=== PATIENT | female | born 1945 | race Caucasian/White ===

== ENCOUNTER 2019-08-09 13:47 | Outpatient (CLI) | payer MEDICARE, SELFPAY ==
--- NOTE | ~2019-08-09 | MM_ITS ---
EXAMINATION: MM screening [facility] BI w brayan HISTORY: Screening mammogram TECHNIQUE: Craniocaudal and mediolateral oblique 3-D tomosynthesis images were obtained and synthetic 2-D images were generated. CAD analysis was submitted and interpreted. COMPARISON: 08/21/2018, 05/24/2018, 04/10/2017 bilateral digital screening mammogram examinations BREAST PARENCHYMAL COMPOSITION: There are scattered areas of fibroglandular density. FINDINGS: Bilateral benign calcifications. There is no evidence of suspicious mass, calcification, or architectural distortion to suggest malignancy in either breast. There has been no suspicious interv al change. IMPRESSION: 1. No mammographic evidence of malignancy. 2. Recommend routine screening mammography in one year. BI-RADS Category 2: Benign finding(s). Reviewed, dictated and finalized at location A. 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
== END 2019-08-09 13:48 | disposition home or self-care (01) ==
LOC: CHSIMG 13:50
PROVIDERS: PCP Nurse Practitioner; Visit Provider Nurse Practitioner
DX: Z12.31 Encounter for screening mammogram for malignant neoplasm of breast (principal)
CPT/HCPCS: 77063; 77067

== ENCOUNTER 2019-11-21 10:02 | Outpatient (CLI) | payer MEDICARE, SELFPAY ==
[2019-11-21 10:54] LABS: Cholesterol 174 mg/dL (0-200); HDL Direct 49 mg/dL (40-60); LDL Cholesterol Calculated 107 mg/dL (<130); Triglycerides 92 mg/dL (0-150)
== END 2019-11-21 10:03 | disposition home or self-care (01) ==
LOC: CHSLAB 10:03
PROVIDERS: PCP Nurse Practitioner; Visit Provider Nurse Practitioner
DX: E78.5 Hyperlipidemia, unspecified (principal)
CPT/HCPCS: 36415; 80061

== ENCOUNTER 2020-02-21 08:46 | Outpatient (CLI) | payer MEDICARE, SELFPAY ==
[2020-02-21 09:07] LABS: Basophils Absolute Auto 0.03 K/mm3 (0.00-0.10); Basophils Percent Auto 0.5 % (0.0-1.0); Eosinophils Absolute Auto 0.26 K/mm3 (0.02-0.50); Eosinophils Percent Auto 4.5 % (1.0-6.0); Hemoglobin 10.2 g/dL (11.7-13.8); Immature Granulocyte Absolute 0.02 K/mm3 (0.00-0.00); Immature Granulocyte Percent A 0.3 % (0.0-0.0); Lymphocytes Absolute Auto 1.78 K/mm3 (1.10-4.50); Lymphocytes Percent Auto 30.7 % (18.0-42.0); Mean Corpuscular HGB Conc 30.9 g/dL (32.0-36.0); Mean Corpuscular Hemoglobin 31.9 pg (27.0-31.0); Mean Corpuscular Volume 103.1 fL (78.0-102.0); Mean Platelet Volume 9.8 fl (9.2-11.8); Monocytes Absolute Auto 0.48 K/mm3 (0.10-0.90); Monocytes Percent Auto 8.3 % (2.0-11.0); Neutrophils Absolute Auto 3.2 K/mm3 (1.7-7.2); Neutrophils Percent Auto 55.7 % (50.0-70.0); Platelet Count Result 182 K/mm3 (150-420); Red Cell Distribution Width 14.2 % (11.6-14.4); White Blood Count 5.8 K/mm3 (4.8-10.8)
[2020-02-21 10:03] LABS: Alanine Aminotransferase 22 U/L (14-59); Albumin Level 4.5 g/dL (3.4-5.0); Alkaline Phosphatase 73 U/L (46-116); Anion Gap 8 mmol/L (8-16); Aspartate Amino Transferase 19 U/L (15-37); Bilirubin,Total 0.8 mg/dL (0.00-1.00); Blood Urea Nitrogen 22 mg/dL (7-18); Calcium 8.6 mg/dL (8.5-10.1); Carbon Dioxide 28 mmol/L (21-32); Chloride 102 mmol/L (98-108); Estimated Glomerular Filt Rate > 60; Glucose 193 mg/dL (70-99); Osmolality Calculated 294 mOsm/kg (285-295); Potassium 4.2 mmol/L (3.5-5.1); Sodium 138 mmol/L (136-145); Total Protein 6.9 g/dL (6.4-8.2)
== END 2020-02-21 08:47 | disposition home or self-care (01) ==
LOC: CHSLAB 08:50
PROVIDERS: PCP Nurse Practitioner
DX: L12.0 Bullous pemphigoid (principal); Z79.899 Other long term (current) drug therapy
CPT/HCPCS: 36415; 80053; 85025

== ENCOUNTER 2020-05-11 08:17 | Outpatient (CLI) | payer MEDICARE, SELFPAY ==
[2020-05-11 08:33] LABS: Basophils Absolute Auto 0.04 K/mm3 (0.00-0.10); Eosinophils Percent Auto 4.9 % (1.0-6.0); Hematocrit 30.6 % (35.0-42.0); Hemoglobin 9.5 g/dL (11.7-13.8); Immature Granulocyte Absolute 0.02 K/mm3 (0.00-0.00); Immature Granulocyte Percent A 0.5 % (0.0-0.0); Lymphocytes Absolute Auto 1.35 K/mm3 (1.10-4.50); Lymphocytes Percent Auto 32.8 % (18.0-42.0); Mean Corpuscular Hemoglobin 31.6 pg (27.0-31.0); Mean Corpuscular Volume 101.7 fL (78.0-102.0); Mean Platelet Volume 9.1 fl (9.2-11.8); Monocytes Absolute Auto 0.34 K/mm3 (0.10-0.90); Monocytes Percent Auto 8.3 % (2.0-11.0); Neutrophils Absolute Auto 2.2 K/mm3 (1.7-7.2); Neutrophils Percent Auto 52.5 % (50.0-70.0); Platelet Count Result 172 K/mm3 (150-420); Red Blood Count 3.01 M/mm3 (4.20-5.40); White Blood Count 4.1 K/mm3 (4.8-10.8)
[2020-05-11 09:09] LABS: Alanine Aminotransferase 20 U/L (14-59); Albumin Level 4.4 g/dL (3.4-5.0); Alkaline Phosphatase 70 U/L (46-116); Anion Gap 10 mmol/L (8-16); Aspartate Amino Transferase 17 U/L (15-37); Bilirubin,Total 1.1 mg/dL (0.00-1.00); Blood Urea Nitrogen 17 mg/dL (7-18); Calcium 8.9 mg/dL (8.5-10.1); Carbon Dioxide 27 mmol/L (21-32); Chloride 103 mmol/L (98-108); Cholesterol 158 mg/dL (0-200); Estimated Glomerular Filt Rate > 60; Glucose 172 mg/dL (70-99); HDL Direct 52 mg/dL (40-60); LDL Cholesterol Calculated 88 mg/dL (<130); Osmolality Calculated 295 mOsm/kg (285-295); Potassium 4.3 mmol/L (3.5-5.1); Sodium 140 mmol/L (136-145); Total Protein 6.9 g/dL (6.4-8.2); Triglycerides 90 mg/dL (0-150)
== END 2020-05-11 08:18 | disposition home or self-care (01) ==
LOC: CHSLAB 08:20
PROVIDERS: PCP Nurse Practitioner; Visit Provider Nurse Practitioner
DX: D64.9 Anemia, unspecified (principal); E78.5 Hyperlipidemia, unspecified; I10 Essential (primary) hypertension; M13.0 Polyarthritis, unspecified; Z13.31 Encounter for screening for depression
CPT/HCPCS: 36415; 80053; 80061; 85025

== ENCOUNTER 2020-08-10 12:28 | Outpatient (CLI) | payer MEDICARE, SELFPAY ==
[2020-08-10 12:45] LABS: Basophils Absolute Auto 0.02 K/mm3 (0.00-0.10); Basophils Percent Auto 0.3 % (0.0-1.0); Eosinophils Absolute Auto 0.18 K/mm3 (0.02-0.50); Eosinophils Percent Auto 2.7 % (1.0-6.0); Hematocrit 29.5 % (35.0-42.0); Hemoglobin 9.2 g/dL (11.7-13.8); Immature Granulocyte Absolute 0.02 K/mm3 (0.00-0.00); Immature Granulocyte Percent A 0.3 % (0.0-0.0); Lymphocytes Absolute Auto 1.33 K/mm3 (1.10-4.50); Lymphocytes Percent Auto 19.7 % (18.0-42.0); Mean Corpuscular HGB Conc 31.2 g/dL (32.0-36.0); Mean Corpuscular Hemoglobin 31.9 pg (27.0-31.0); Mean Corpuscular Volume 102.4 fL (78.0-102.0); Mean Platelet Volume 9.5 fl (9.2-11.8); Monocytes Absolute Auto 0.38 K/mm3 (0.10-0.90); Monocytes Percent Auto 5.6 % (2.0-11.0); Neutrophils Absolute Auto 4.8 K/mm3 (1.7-7.2); Neutrophils Percent Auto 71.4 % (50.0-70.0); Platelet Count Result 162 K/mm3 (150-420); Red Blood Count 2.88 M/mm3 (4.20-5.40); Red Cell Distribution Width 13.8 % (11.6-14.4); White Blood Count 6.8 K/mm3 (4.8-10.8)
[2020-08-10 13:32] LABS: Alanine Aminotransferase 30 U/L (14-59); Albumin Level 4.1 g/dL (3.4-5.0); Alkaline Phosphatase 71 U/L (46-116); Anion Gap 9 mmol/L (8-16); Aspartate Amino Transferase 30 U/L (15-37); Bilirubin,Total 1.4 mg/dL (0.00-1.00); Blood Urea Nitrogen 15 mg/dL (7-18); Calcium 8.7 mg/dL (8.5-10.1); Carbon Dioxide 29 mmol/L (21-32); Chloride 100 mmol/L (98-108); Estimated Glomerular Filt Rate > 60; Glucose 162 mg/dL (70-99); Osmolality Calculated 290 mOsm/kg (285-295); Potassium 4.1 mmol/L (3.5-5.1); Sodium 138 mmol/L (136-145); Total Protein 6.7 g/dL (6.4-8.2)
== END 2020-08-10 12:29 | disposition home or self-care (01) ==
PROVIDERS: PCP Nurse Practitioner
DX: Z79.899 Other long term (current) drug therapy (principal)
CPT/HCPCS: 36415; 80053; 85025

== ENCOUNTER 2020-08-20 12:25 | Outpatient (CLI) | payer MEDICARE, SELFPAY ==
--- NOTE | ~2020-08-20 | MM_ITS ---
EXAMINATION: MM screening [facility] BI w brayan HISTORY: Screening TECHNIQUE: Craniocaudal and mediolateral oblique 3-D tomosynthesis images were obtained and synthetic 2-D images were generated. CAD analysis was submitted and interpreted. COMPARISON: Comparison to multiple prior studies sequentially, with oldest reviewed study dated 03/06. BREAST PARENCHYMAL COMPOSITION: There are scattered areas of fibroglandular density. FINDINGS: There is no evidence of suspicious mass, calcification, or architectural distortion to sugg est malignancy in either breast. There has been no suspicious interval change. IMPRESSION: 1. No mammographic evidence of malignancy. 2. Recommend routine screening mammography in one year. BI-RADS Category 1: Negative Reviewed, dictated and finalized at location A.
[2020-08-20 13:32] LABS: Ferritin 307 ng/mL (8-252); Folic Acid > 20.0 ng/mL (8.6->20); Iron 65 ug/dL (50-170); Percent Iron Saturation 30 % (12-57); Vitamin B12 > 2000 pg/mL (193-986)
== END 2020-08-20 12:26 | disposition home or self-care (01) ==
LOC: CHSIMG 12:29
PROVIDERS: PCP Nurse Practitioner; Visit Provider Nurse Practitioner
DX: Z79.899 Other long term (current) drug therapy (principal); Z12.31 Encounter for screening mammogram for malignant neoplasm of breast; D64.9 Anemia, unspecified
CPT/HCPCS: 36415; 77063; 77067; 82607; 82728; 82746; 83540; 83550

== ENCOUNTER 2020-12-04 14:39 | Outpatient (CLI) | payer MEDICARE, SELFPAY ==
[2020-12-04 16:36] LABS: Folic Acid 14.6 ng/mL (8.6->20)
[2020-12-04 16:39] LABS: Vitamin B12 > 2000 pg/mL (193-986)
== END 2020-12-04 14:40 | disposition home or self-care (01) ==
LOC: CHSLAB 14:44
PROVIDERS: PCP Nurse Practitioner; Visit Provider Nurse Practitioner
DX: D64.9 Anemia, unspecified (principal)
CPT/HCPCS: 36415; 82607; 82746

== ENCOUNTER 2021-01-18 13:17 | Outpatient (CLI) | payer MEDICARE, SELFPAY ==
[2021-01-18 15:34] LABS: Folic Acid 16.9 ng/mL (8.6->20); Vitamin B12 1093 pg/mL (193-986)
== END 2021-01-18 13:18 | disposition home or self-care (01) ==
LOC: CHSLAB 13:21
PROVIDERS: PCP Nurse Practitioner; Visit Provider Nurse Practitioner
DX: D64.9 Anemia, unspecified (principal)
CPT/HCPCS: 36415; 82607; 82746

== ENCOUNTER 2021-02-15 14:15 | Outpatient (CLI) | payer MEDICARE, SELFPAY ==
[2021-02-15 14:38] LABS: Hematocrit 31.6 % (35.0-42.0); Immature Reticulocyte Fraction 24.1 % (2.0-16.52); Mean Corpuscular HGB Conc 31.6 g/dL (32.0-36.0); Mean Corpuscular Hemoglobin 32.6 pg (27.0-31.0); Mean Corpuscular Volume 102.9 fL (78.0-102.0); Mean Platelet Volume 10.4 fl (9.2-11.8); Platelet Count Result 156 K/mm3 (150-420); Red Blood Count 3.07 M/mm3 (4.20-5.40); Red Cell Distribution Width 14.3 % (11.6-14.4); Reticulocyte Hemoglobin Conten 35.7 pg (28.0-35.0); Reticulocyte Percent 7.51 % (0.50-1.50); Reticulocytes Absolute 0.23 M/mm3 (0.02-0.1); White Blood Count 4.9 K/mm3 (4.8-10.8)
[2021-02-15 15:34] LABS: Alanine Aminotransferase 24 U/L (14-59); Albumin Level 4.5 g/dL (3.4-5.0); Alkaline Phosphatase 75 U/L (46-116); Anion Gap 10 mmol/L (8-16); Aspartate Amino Transferase 19 U/L (15-37); Blood Urea Nitrogen 16 mg/dL (7-18); Calcium 8.7 mg/dL (8.5-10.1); Carbon Dioxide 31 mmol/L (21-32); Chloride 102 mmol/L (98-108); Estimated Glomerular Filt Rate > 60; Ferritin 279 ng/mL (8-252); Glucose 145 mg/dL (70-99); Iron 70 ug/dL (50-170); Osmolality Calculated 300 mOsm/kg (285-295); Percent Iron Saturation 32 % (12-57); Potassium 4.3 mmol/L (3.5-5.1); Sodium 143 mmol/L (136-145); Total Protein 6.9 g/dL (6.4-8.2)
== END 2021-02-15 14:16 | disposition home or self-care (01) ==
LOC: CHSLAB 14:18
PROVIDERS: PCP Nurse Practitioner
DX: D64.9 Anemia, unspecified (principal); L12.0 Bullous pemphigoid; Z79.899 Other long term (current) drug therapy
CPT/HCPCS: 36415; 80053; 82728; 83540; 83550; 85027; 85046

== ENCOUNTER 2021-06-14 10:13 | Outpatient (CLI) | payer MEDICARE, SELFPAY ==
--- NOTE | ~2021-06-14 | XR_ITS ---
EXAMINATION: XR hand BI arthritis min 3V DATE: 06/14/2021 10:44 INDICATION: Bilateral hand arthritis. Hand pain. TECHNIQUE: 4 views of right hand and 4 views of left hand on 7 radiographs were obtained. COMPARISON: None. FINDINGS: RIGHT HAND: Bone alignment is normal. No fracture. There is moderate osteoarthritis of triscaphe join t and mild osteoarthritis of first carpometacarpal joint. There is mild osteoarthritis of most of the interphalangeal joints. There is moderate osteoarthritis of first interphalangeal joint and second, third, and fifth distal interphalangeal joints. LEFT HAND: There is ulnar subluxation of third distal phalanx with respect to the middle phalanx. No fracture. There is mild osteoarthritis of triscaphe joint and first carpometacarpal joint. There is m ild osteoarthritis of most of the interphalangeal joints. There is moderate osteoarthritis of fifth p roximal interphalangeal joint and third and fourth distal interphalangeal joints. IMPRESSION: 1. Polyarticular osteoarthritis. Reviewed, dictated and finalized at location B. 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
[2021-06-14 10:39] LABS: Basophils Absolute Auto 0.02 K/mm3 (0.00-0.10); Basophils Percent Auto 0.3 % (0.0-1.0); Eosinophils Absolute Auto 0.14 K/mm3 (0.02-0.50); Eosinophils Percent Auto 1.9 % (1.0-6.0); Hematocrit 32.8 % (35.0-42.0); Hemoglobin 10.2 g/dL (11.7-13.8); Immature Granulocyte Absolute 0.02 K/mm3 (0.00-0.00); Immature Granulocyte Percent A 0.3 % (0.0-0.0); Lymphocytes Absolute Auto 1.06 K/mm3 (1.10-4.50); Lymphocytes Percent Auto 14.2 % (18.0-42.0); Mean Corpuscular HGB Conc 31.1 g/dL (32.0-36.0); Mean Corpuscular Volume 99.7 fL (78.0-102.0); Mean Platelet Volume 9.3 fl (9.2-11.8); Monocytes Absolute Auto 0.48 K/mm3 (0.10-0.90); Monocytes Percent Auto 6.4 % (2.0-11.0); Neutrophils Absolute Auto 5.8 K/mm3 (1.7-7.2); Neutrophils Percent Auto 76.9 % (50.0-70.0); Platelet Count Result 170 K/mm3 (150-420); Red Blood Count 3.29 M/mm3 (4.20-5.40); Red Cell Distribution Width 15.2 % (11.6-14.4); White Blood Count 7.5 K/mm3 (4.8-10.8)
[2021-06-14 11:34] LABS: Alanine Aminotransferase 23 U/L (14-59); Albumin Level 4.2 g/dL (3.4-5.0); Alkaline Phosphatase 78 U/L (46-116); Anion Gap 11 mmol/L (8-16); Aspartate Amino Transferase 15 U/L (15-37); Blood Urea Nitrogen 16 mg/dL (7-18); Calcium 8.7 mg/dL (8.5-10.1); Carbon Dioxide 28 mmol/L (21-32); Chloride 102 mmol/L (98-108); Cholesterol 170 mg/dL (0-200); Estimated Glomerular Filt Rate > 60; Ferritin 242 ng/mL (8-252); Glucose 161 mg/dL (70-99); HDL Direct 59 mg/dL (40-60); Iron 39 ug/dL (50-170); LDL Cholesterol Calculated 90 mg/dL (<130); Osmolality Calculated 296 mOsm/kg (285-295); Percent Iron Saturation 17 % (12-57); Potassium 3.8 mmol/L (3.5-5.1); Sodium 141 mmol/L (136-145); Triglycerides 106 mg/dL (0-150)
[2021-06-17 18:15] LABS: Vitamin B12 471 pg/mL (193-986)
== END 2021-06-14 10:14 | disposition home or self-care (01) ==
LOC: CHSLAB 10:19
PROVIDERS: PCP Nurse Practitioner; Visit Provider Nurse Practitioner
DX: M19.049 Primary osteoarthritis, unspecified hand (principal); D64.9 Anemia, unspecified; E78.5 Hyperlipidemia, unspecified; I10 Essential (primary) hypertension; Z13.31 Encounter for screening for depression
CPT/HCPCS: 36415; 73130; 80053; 80061; 82607; 82728; 83540; 83550; 85025

== ENCOUNTER 2021-09-08 11:19 | Outpatient (CLI) | payer MEDICARE, SELFPAY ==
--- NOTE | ~2021-09-08 | MM_ITS ---
EXAMINATION: MM screening [facility] BI w brayan HISTORY: Screening TECHNIQUE: Craniocaudal and mediolateral oblique 3-D tomosynthesis images were obtained and synthetic 2-D images were generated. CAD analysis was submitted and interpreted. COMPARISON: Comparison to multiple prior studies sequentially, with oldest reviewed study dated 11/2016. BREAST PARENCHYMAL COMPOSITION: Breast composed of scattered areas of fibroglandular density. FINDINGS: There is no evidence of suspicious mass, calcification, or architectural distortion to sugg est malignancy in either breast. There has been no suspicious interval change. IMPRESSION: 1. No mammographic evidence of malignancy. 2. Recommend routine screening mammography in one year. BI-RADS Category 1: Negative Reviewed, dictated and finalized at location A.
== END 2021-09-08 11:20 | disposition home or self-care (01) ==
PROVIDERS: PCP Nurse Practitioner; Visit Provider Nurse Practitioner
DX: Z12.31 Encounter for screening mammogram for malignant neoplasm of breast (principal)
CPT/HCPCS: 77063; 77067

== ENCOUNTER 2022-08-12 13:19 | Outpatient (CLI) | payer MEDICARE, SELFPAY ==
[2022-08-12 13:56] LABS: Hemoglobin A1C 6.3 % (<5.7)
[2022-08-12 14:08] LABS: Basophils Absolute Auto 0.03 K/mm3 (0.00-0.10); Basophils Percent Auto 0.6 % (0.0-1.0); Eosinophils Percent Auto 3.8 % (1.0-6.0); Hematocrit 38.9 % (35.0-42.0); Hemoglobin 12.5 g/dL (11.7-13.8); Immature Granulocyte Absolute 0.01 K/mm3 (0.00-0.00); Immature Granulocyte Percent A 0.2 % (0.0-0.0); Lymphocytes Absolute Auto 1.41 K/mm3 (1.10-4.50); Lymphocytes Percent Auto 26.9 % (18.0-42.0); Mean Corpuscular HGB Conc 32.1 g/dL (32.0-36.0); Mean Corpuscular Volume 90.3 fL (78.0-102.0); Mean Platelet Volume 9.6 fl (9.2-11.8); Monocytes Absolute Auto 0.35 K/mm3 (0.10-0.90); Monocytes Percent Auto 6.7 % (2.0-11.0); Neutrophils Absolute Auto 3.3 K/mm3 (1.7-7.2); Neutrophils Percent Auto 61.8 % (50.0-70.0); Platelet Count Result 182 K/mm3 (150-420); Red Blood Count 4.31 M/mm3 (4.20-5.40); Red Cell Distribution Width 13.9 % (11.6-14.4); White Blood Count 5.3 K/mm3 (4.8-10.8)
[2022-08-12 14:59] LABS: Alanine Aminotransferase 26 U/L (14-59); Albumin Level 4.3 g/dL (3.4-5.0); Alkaline Phosphatase 89 U/L (46-116); Anion Gap 10 mmol/L (8-16); Aspartate Amino Transferase 20 U/L (15-37); Bilirubin,Total 0.5 mg/dL (0.00-1.00); Blood Urea Nitrogen 23 mg/dL (7-18); Calcium 9.1 mg/dL (8.5-10.1); Carbon Dioxide 29 mmol/L (21-32); Chloride 102 mmol/L (98-108); Cholesterol 210 mg/dL (0-200); Estimated Glomerular Filt Rate > 60; Ferritin 186 ng/mL (8-252); Folic Acid 15.8 ng/mL (8.6->20); Glucose 119 mg/dL (70-99); HDL Direct 52 mg/dL (40-60); Iron 88 ug/dL (50-170); LDL Cholesterol Calculated 129 mg/dL (<130); Osmolality Calculated 296 mOsm/kg (285-295); Percent Iron Saturation 34 % (12-57); Potassium 4.5 mmol/L (3.5-5.1); Sodium 141 mmol/L (136-145); Thyroid Stimulating Hormone 1.79 uIU/mL (0.36-3.74); Total Protein 7.3 g/dL (6.4-8.2); Triglycerides 144 mg/dL (0-150); Vitamin B12 359 pg/mL (193-986)
[2022-08-16 19:20] LABS: Vitamin D 25 Hydroxy 48 ng/mL (30-100)
== END 2022-08-12 13:20 | disposition home or self-care (01) ==
LOC: CHSLAB 13:27
PROVIDERS: PCP Nurse Practitioner; Visit Provider Nurse Practitioner
DX: M25.561 Pain in right knee (principal); D64.9 Anemia, unspecified; E11.9 Type 2 diabetes mellitus without complications; E78.5 Hyperlipidemia, unspecified; I10 Essential (primary) hypertension; L30.9 Dermatitis, unspecified; R53.82 Chronic fatigue, unspecified; Z13.29 Encounter for screening for other suspected endocrine disorder; Z79.899 Other long term (current) drug therapy
CPT/HCPCS: 36415; 80053; 80061; 82306; 82607; 82728; 82746; 83036; 83540; 83550; 84443; 85025

== ENCOUNTER 2022-09-27 07:07 | Outpatient (CLI) | payer MEDICARE, SELFPAY ==
--- NOTE | ~2022-09-27 | XR_ITS ---
EXAMINATION: XR knee RT min 4V DATE: 09/27/2022 07:27 INDICATION: Generalized right knee pain. TECHNIQUE: 4 views of right knee were obtained. COMPARISON: None. FINDINGS: Bone alignment is normal. No fracture. There is severe osteoarthritis of medial compartment and mild osteoarthritis of lateral and patellofemoral compartments. No knee joint effusion. IMPRESSION: 1. Severe right knee osteoarthritis. Reviewed, dictated and finalized at location A.
== END 2022-09-27 07:08 | disposition home or self-care (01) ==
LOC: CHSIMG 07:09
PROVIDERS: PCP Nurse Practitioner; Visit Provider Orthopaedic Surgery
DX: M25.561 Pain in right knee (principal); M17.11 Unilateral primary osteoarthritis, right knee
CPT/HCPCS: 73564

== ENCOUNTER 2023-09-22 13:24 | Outpatient (CLI) | payer MEDICARE, SELFPAY ==
--- NOTE | ~2023-09-22 | XR_ITS ---
EXAMINATION: XR lumbar spine 2-3V DATE: 09/22/2023 14:07 INDICATION: Chronic low back pain with sciatica. TECHNIQUE: 3 views of lumbar spine were obtained. COMPARISON: None. FINDINGS: There is 6 degrees levocurvature of lumbar spine. Vertebral body heights are normal. There is mildly decreased disc height at L1-L2, moderately decreased disc height at L2-L3, severely decreas ed disc height at L3-L4, moderately decreased disc height at L4-L5, severely decreased disc height at L5-S1. There is multilevel severe facet joint osteoarthritis. IMPRESSION: 1. Severe lumbar spondylosis. Reviewed, dictated and finalized at location E.
--- NOTE | ~2023-09-22 | XR_ITS ---
EXAMINATION: XR sacroiliac joints min 3V DATE: 09/22/2023 14:07 INDICATION: Chronic right hip pain. Chronic low back pain with sciatica. TECHNIQUE: 3 views of the sacroiliac joints were obtained. COMPARISON: None. FINDINGS: Bone alignment is normal. No acute fracture. There is an old healed fracture of left inferi or pubic ramus. Osteitis pubis is noted. There is mild osteoarthritis of the hips. There is severe os teoarthritis of the sacroiliac joints. IMPRESSION: 1. Severe osteoarthritis of the sacroiliac joints. Reviewed, dictated and finalized at location E.
--- NOTE | ~2023-09-22 | XR_ITS ---
XR hip RT min 2V 09/22/2023 14:07 Indication: Right hip pain Procedure: 2 views right hip Comparison: No prior studies for comparison. Findings: There is mild osteoarthritis of the right hip. No fracture, subluxation or dislocation. The re is osteitis pubis. There is a atherosclerosis. Impression: 1: Mild osteoarthritis of the right hip. Reviewed, dictated and finalized at location B. Impression: 1: Mild osteoarthritis of the right hip.
== END 2023-09-22 13:25 | disposition home or self-care (01) ==
LOC: CHSIMG 13:28
PROVIDERS: PCP Nurse Practitioner Family; Visit Provider Nurse Practitioner Family
DX: M25.551 Pain in right hip (principal); M47.898 Other spondylosis, sacral and sacrococcygeal region; M43.06 Spondylolysis, lumbar region; M16.11 Unilateral primary osteoarthritis, right hip
CPT/HCPCS: 72100; 72202; 73502

== ENCOUNTER 2025-05-07 15:04 | Outpatient (CLI) | payer MEDICARE, SELFPAY ==
--- NOTE | ~2025-05-07 | CT_ITS ---
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 Technique: Axial images obtained of the brain without contrast. One or more of the following dose reduction techniques were used: automated exposure control, adjustment of the mA and/or kV according to patient size, use of iterative reconstruction technique. Findings: No acute infarct or parenchymal hemorrhage. No abnormal mass or mass effect. No midline shift. No extra-axial fluid collections. No hydrocephalus. Mastoid air cells unremarkable. Sinuses and orbits unremarkable. No acute fracture. No significant facial or scalp soft tissue swelling evident. No radiopaque foreign body is seen. Impression: 1.No acute intracranial abnormality. Reviewed, dictated and finalized at location P. 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
--- NOTE | ~2025-05-07 | CT_ITS ---
EXAMINATION: CT soft tissue neck wo con DATE: 05/07/2025 15:28 INDICATION: Dizziness. Loss of balance. TECHNIQUE: Computed tomography (CT) of the neck was performed without intravenous contrast. Automated exposure control and iterative reconstruction technique were employed. The dose-length product was 681.00 mGy-cm. COMPARISON: None FINDINGS: There is a 4 mm nodule in left lung upper lobe, likely benign. The orbits are normal. There are no pathologically enlarged lymph nodes. The pharynx and larynx are normal. The paranasal sinuses are clear. There is a small right mastoid effusion. There is severe cervical spondylosis. IMPRESSION: 1. No evidence of malignancy. Reviewed, dictated and finalized at location E. 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
== END 2025-05-07 15:05 | disposition home or self-care (01) ==
LOC: CHSIMG 15:06
PROVIDERS: PCP Physician Assistant; Visit Provider Physician Assistant
DX: R26.89 Other abnormalities of gait and mobility (principal)
CPT/HCPCS: 70450; 70490